=== PATIENT | female | born 1995 | race Hispanic/Latino ===

== ENCOUNTER 2019-01-12 18:27 | Emergency (ER) | payer MEDICAID ==
--- NOTE | 2019-01-12 19:13 | ED PDOC ---
HPI: General Adult Time Seen by Provider: 01/12/19 18:54 Chief Complaint (Nursing): Fever Chief Complaint (Provider): cough History Per: Patient History/Exam Limitations: no limitations Onset/Duration Of Symptoms: Days Additional Complaint(s): Pt. with cough, congestion, body aches, pain to the right side of her neck, mild headache diffuse. Headache is not the worst in her life. No numbness, tingles, weakness, nausea, vomit, diarrhea, leg pain, vision changes, rashes. Someone at school possibly had meningitis so she got scared and came. No fever. Took dayquil and helped some. Past Medical History Vital Signs: Last Vital Signs Temp 98.2 F 01/12/19 18:38 Pulse 81 01/12/19 18:38 Resp 16 01/12/19 18:38 BP 125/74 01/12/19 18:38 Pulse Ox 99 01/12/19 18:38 - Medical History PMH: No Chronic Diseases Denies: Chronic Kidney Disease - Surgical History Surgical History: No Surg Hx - Family History Family History: States: Unknown Family Hx - Immunization History Hx Tetanus Toxoid Vaccination: No Hx Influenza Vaccination: Yes Hx Pneumococcal Vaccination: No - Home Medications Home Medications: Ambulatory Orders Medication Instructions Recorded Naproxen [Naprosyn] 500 mg PO Q12H #20 tab 04/27/16 Doxycycline Monohydrate 100 mg PO BID #14 tablet 05/26/16 Ibuprofen 600 mg PO Q6 PRN #20 tablet 05/26/16 Ibuprofen [Motrin] 600 mg PO TID 7 Days tab 01/12/19 - Allergies Allergies/Adverse Reactions: Allergies Allergy/AdvReac Type Severity Reaction Status Date / Time No Known Allergies Allergy Verified 01/12/19 18:37 Review of Systems ROS Statement: Except As Marked, All Systems Reviewed And Found Negative ENT: Positive for: Nose Discharge, Nose Congestion Respiratory: Positive for: Cough Musculoskeletal: Positive for: Neck Pain, Other (body aches) Neurological: Positive for: Headache Physical Exam - Reviewed Nursing Documentation Reviewed: Yes Vital Signs Reviewed: Yes - Physical Exam Appears: Positive for: Well, Non-toxic, No Acute Distress Head Exam: Positive for: ATRAUMATIC, NORMAL INSPECTION, NORMOCEPHALIC Skin: Positive for: Normal Color, Warm. Negative for: Rash (no rashes on legs or arms) Eye Exam: Positive for: EOMI, Normal appearance, PERRL ENT: Positive for: Normal ENT Inspection Neck: Positive for: Normal, Painless ROM, Supple, Trachea Midline Cardiovascular/Chest: Positive for: Regular Rate, Rhythm Respiratory: Positive for: CNT, Normal Breath Sounds Gastrointestinal/Abdominal: Positive for: Normal Exam, Soft. Negative for: Tenderness Back: Positive for: Normal Inspection. Negative for: L CVA Tenderness, R CVA Tenderness Extremity: Positive for: Normal ROM. Negative for: Tenderness, Pedal Edema Neurological/Psych: Positive for: Awake, Alert, Normal Tone, block layer II-XII, Other (neg kernig and brudzinsky). Negative for: Motor/Sensory Deficits, Facial Droop - ECG O2 Sat by Pulse Oximetry: 99 Pulse Ox Interpretation: Normal - Progress ED Course And Treament: 2100: Pt. does not want lumbar puncture for evaluation. Aware we are not able to identify meningitis without this. Pt. states she will see how she feels and return if any changes. No pain or dizziness at this time. AAOx3. Family with pt. and agree. Pt. has capacity to make decisions. Ambulated with no issues. Disposition - Clinical Impression Clinical Impression: URI (upper respiratory infection) - Patient ED Disposition Is Patient to be Admitted: No Counseled Patient/Family Regarding: Studies Performed, Diagnosis, Need For Followup, Rx Given - Disposition Referrals: [facility] [Outside] - 01/13/19 Disposition: Routine/Home Disposition Time: 21:04 Condition: STABLE Additional Instructions: Return if any pain, weakness, dizziness, fever, neck pain, or not feeling right. We have not done a lumbar puncture at your request, so we are not able to fully rule out meningitis. Prescriptions: Ibuprofen [Motrin] 600 mg PO TID 7 Days tab Instructions: Viral Upper Respiratory Infection, Adult (DC) Forms: [employer] ([place]i), [facility] ED School/Work Excuse
[2019-01-12 21:31] VITALS: BP 109/65; PULSE 80; RESP 18; TEMP 98.1; O2SAT 100
== END 2019-01-12 21:32 | disposition home or self-care (01) ==
LOC: H.ER 18:27
DX: J06.9 Acute upper respiratory infection, unspecified (principal)